=== PATIENT | female | born 1950 | race Caucasian/White ===

== ENCOUNTER → 2020-08-06 11:44 | Outpatient (CLI) | payer MEDICARE, SELFPAY ==
--- NOTE | ~2020-08-06 | US_ITS ---
EXAMINATION: US thyroid DATE: 08/06/2020 12:08 INDICATION: Thyroid nodules. TECHNIQUE: Multiple ultrasound images of the thyroid were obtained. COMPARISON: None. FINDINGS: The right thyroid lobe measures 4.3 x 1.3 x 1.1 cm. The left thyroid lobe measures 4.9 x 1.4 x 1.2 c m. There are multiple nodules in the thyroid. In the left thyroid lobe, there is a 10 mm solid, isoe choic, [id number]-zral-dnfs nodule with ill-defined margin without echogenic foci (TI-RADS TR3). In the le ft thyroid lobe, there is a 7 mm mixed cystic and solid, isoechoic, kptrq-urdp-eccy nodule with paddy h margin without echogenic foci (TR2). In the right thyroid lobe, there is a 7 mm solid, hypoechoic, [id number]-[id number]-[id number] nodule with smooth margin without echogenic foci (TR4). IMPRESSION: 1. Thyroid nodules, likely not clinically significant. No follow-up is needed. Reviewed, dictated and finalized at location [facility].
== END ==
PROVIDERS: PCP Internal Medicine; Visit Provider Internal Medicine
DX: E04.2 Nontoxic multinodular goiter (principal)
CPT/HCPCS: 76536

== ENCOUNTER → 2023-03-02 15:37 | Outpatient (CLI) | payer MEDICARE, SELFPAY ==
--- NOTE | ~2023-03-02 | XR_ITS ---
Supine and upright views of the abdomen Clinical history: Malignant neoplasm metastatic to lung Findings: Bowel gas pattern is nonspecific. No evidence for obstruction or free air. No abnormal mass lesion or calcification is seen. There is mild levoscoliosis of the thoracolumbar spine. Impression: Nonspecific bowel gas pattern. Reviewed, dictated and finalized at [facility]. Impression: Nonspecific bowel gas pattern.
== END ==
PROVIDERS: PCP Internal Medicine
DX: C80.1 Malignant (primary) neoplasm, unspecified (principal); C78.00 Secondary malignant neoplasm of unspecified lung
CPT/HCPCS: 74018